=== PATIENT | male | born 1955 | race Caucasian/White ===

== ENCOUNTER 2016-09-04 10:50 | Emergency (ER) | payer OTHER ==
[2016-09-04 10:54] VITALS: BP 137/99; PULSE 84; TEMP 98.6; BMI 33.9
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
== END 2016-09-04 11:38 | disposition home or self-care (01) ==
LOC: FER 10:50
PROC: 0H94XZZ Drainage of Neck Skin, External Approach (ICD-10-PCS; principal; 2016-09-04)
DX: L02.11 Cutaneous abscess of neck (principal); F17.210 Nicotine dependence, cigarettes, uncomplicated; F31.9 Bipolar disorder, unspecified
CPT/HCPCS: 10060; 87070; 87186; 87205; 99283-25

== ENCOUNTER 2016-09-06 10:56 | Emergency (ER) | payer OTHER ==
[2016-09-06 11:08] VITALS: BP 138/90; PULSE 70; TEMP 98.6; BMI 33.9
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
== END 2016-09-06 12:48 | disposition home or self-care (01) ==
LOC: FER 10:56
DX: Z48.01 Encounter for change or removal of surgical wound dressing (principal)
CPT/HCPCS: 99281-25

== ENCOUNTER 2016-10-10 12:55 | Emergency (ER) | payer OTHER ==
[2016-10-10 13:03] VITALS: BP 122/85; PULSE 85; TEMP 98.8; BMI 33.9
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
== END 2016-10-10 13:30 | disposition home or self-care (01) ==
LOC: FER 12:55
DX: Z48.00 Encounter for change or removal of nonsurgical wound dressing (principal)
CPT/HCPCS: 99282-25

== ENCOUNTER 2016-12-15 20:18 | Emergency (ER) | payer OTHER ==
[2016-12-15 20:25] VITALS: BP 143/92; PULSE 82; TEMP 98.7; BMI 33.9
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
[2016-12-15] MEDS ORDERED: CLINDAMYCIN HCL 300 MG CAPSULE PO ONE (23:44)
[2016-12-15] MEDS ORDERED: OXYCODONE/APAP 5/325MG COMBO TABLET PO ONE (23:45)
[2016-12-15] MEDS ORDERED: OXYCODONE/APAP 5/325MG COMBO TABLET ONE (23:49)
[2016-12-15] MEDS ORDERED: CLINDAMYCIN HCL 150 MG CAPSULE (FP) ONE (23:49)
== END 2016-12-15 23:54 | disposition home or self-care (01) ==
LOC: FER 20:18
PROC: 0H91XZZ Drainage of Face Skin, External Approach (ICD-10-PCS; principal; 2016-12-15)
DX: L02.01 Cutaneous abscess of face (principal); F11.90 Opioid use, unspecified, uncomplicated; Z86.14 Personal history of Methicillin resistant Staphylococcus aureus infection; F31.9 Bipolar disorder, unspecified; F17.210 Nicotine dependence, cigarettes, uncomplicated
CPT/HCPCS: 87070; 87186; 87205; 99281-25

== ENCOUNTER 2018-11-23 09:48 | Day surgery (SDC) | payer OTHER ==
[2018-11-19 15:03] VITALS: BMI 31.4
[2018-11-23 11:45] VITALS: TEMP 98.4
[2018-11-23 12:37] VITALS: BP 131/89; PULSE 64
--- NOTE | 2018-11-25 13:07 | PATH ---
Surgical Pathology Report Patient Name: IRMA MULLIGAN [facility]. Rec. #: [id number] /Age/Gender: 1955 (Age: 63) / M Account: [id number] Location: [facility] Taken: 11/23/2018 Received: 11/23/2018 Reported: 11/25/2018 Physicians: Earnest Sandoval M.D. Specimen(s) Received A: POLYP DISTAL SIGMOID B: RECTUM BX R/O MICROSCOPIC COLITIS Clinical History History of polyps Postoperative diagnosis: Diverticulosis, polyp Final Diagnosis A. DISTAL SIGMOID, POLYP, POLYPECTOMY: SESSILE SERRATED POLYP. B. RECTUM, BIOPSY: FOCAL ACTIVE COLITIS/PROCTITIS. Note: Features suggestive of microscopic colitis are not identified in this biopsy. Electronically Signed Vidhi Salamanca M.D. Gross Description A. Received in formalin, labeled "polyp distal sigmoid" is a oliveira, irregular portion of soft tissue measuring 0.5 cm. in greatest dimension. The specimen is submitted in toto in one cassette. B. Received in formalin, labeled "rectum biopsy" are 2 oliveira, irregular portions of soft tissue measuring 0.3 and 0.6 cm. in greatest dimension. The specimens are submitted in toto in one cassette. 11/23/201811/23/2018
== END 2018-11-23 12:10 | disposition home or self-care (01) ==
LOC: FASU-ENDO 09:48
PROVIDERS: ATTEND Internal Medicine Gastroenterology
PROC: 0DBP8ZX Excision of Rectum, Via Natural or Artificial Opening Endoscopic, Diagnostic (ICD-10-PCS; 2018-11-23)
PROC: 0DBN8ZX Excision of Sigmoid Colon, Via Natural or Artificial Opening Endoscopic, Diagnostic (ICD-10-PCS; 2018-11-23)
PROC: 0DBN8ZX Excision of Sigmoid Colon, Via Natural or Artificial Opening Endoscopic, Diagnostic (ICD-10-PCS; principal; 2018-11-23 11:17)
DX: Z86.010 Personal history of colon polyps (principal); D12.5 Benign neoplasm of sigmoid colon; K52.9 Noninfective gastroenteritis and colitis, unspecified; K57.30 Diverticulosis of large intestine without perforation or abscess without bleeding
CPT/HCPCS: 88305-TC

== ENCOUNTER 2020-06-22 14:59 | Emergency (ER) | payer OTHER | END 2020-06-22 15:41 | disposition home or self-care (01) | LOC: JVIRT 14:59 | DX: R05 Cough (principal); U07.1 COVID-19 | CPT/HCPCS: C9803; Q3014-GT; U0003 ==

== ENCOUNTER 2020-07-02 11:45 | Emergency (ER) | payer OTHER | END 2020-07-02 12:38 | disposition home or self-care (01) | LOC: JVIRT 11:45 | DX: U07.1 COVID-19 (principal) | CPT/HCPCS: C9803; G2012-GT; U0003 ==

== ENCOUNTER 2020-07-08 11:17 | Emergency (ER) | payer OTHER | END 2020-07-08 11:36 | disposition home or self-care (01) | LOC: JVIRT 11:17 | DX: Z11.59 Encounter for screening for other viral diseases (principal) | CPT/HCPCS: C9803; Q3014-GT; U0003 ==

== ENCOUNTER 2022-09-21 22:17 | Emergency (ER) | payer OTHER ==
[2022-09-21 22:35] VITALS: BP 124/98; PULSE 113; RESP 16; TEMP 99; BMI 32.0
[2022-09-21] MEDS ORDERED: LIDOCAINE HCL 1%, 10 MG/ML (20ML VIAL) ONE (22:46)
[2022-09-21] MEDS ORDERED: CLINDAMYCIN HCL 300 MG CAPSULE PO ONE (22:53)
[2022-09-21] MEDS ORDERED: CLINDAMYCIN HCL 150 MG CAPSULE (FP) ONE (22:55)
== END 2022-09-21 23:20 | disposition home or self-care (01) ==
LOC: FER 22:17
PROC: 0C94XZZ Drainage of Buccal Mucosa, External Approach (ICD-10-PCS; principal; 2022-09-21)
DX: K04.7 Periapical abscess without sinus (principal)
CPT/HCPCS: 99283-25